=== PATIENT | male | born 1955 | race Caucasian/White ===

== ENCOUNTER 2023-04-27 17:38 | Outpatient (CLI) | payer BC, MEDICARE ==
[2023-04-27 18:27] LABS: Hematocrit 40.9 % (38.8-50.0); Hemoglobin 14.1 g/dL (13.5-17.5); Mean Corpuscular HGB CONC 34.5 g/dL (32.0-36.0); Mean Corpuscular Hemoglobin 31.7 pg (27.0-33.0); Mean Corpuscular Volume 91.9 fl (81.2-95.1); Mean Platelet Volume 9.4 fl (7.4-10.4); Platelet Count 283 10x3/uL (150-450); Red Blood Cell (RBC) Count 4.45 10x6/uL (4.32-5.72); White Blood Cell (WBC) Count 5.3 10x3/uL (3.5-10.5)
[2023-04-27 18:38] LABS: PTT 25.6 sec (22.0-33.0); Prothrombin Time 10.6 sec (9.5-12.1)
[2023-04-27 18:40] LABS: ALT (SGPT) 18 U/L (8-55); AST (SGOT) 18 U/L (5-34); Albumin 4.4 g/dL (3.4-4.8); Alkaline Phosphatase 81 U/L (40-110); Anion Gap 13 mmol/L (10-20); BUN (Urea Nitrogen) 13 mg/dL (8.4-25.7); Bilirubin, Total 0.5 mg/dL (0.2-1.2); Calc. Creatinine Clearance 0 mL/min (70-130); Carbon Dioxide 23 mmol/L (23-31); Chloride 107 mmol/L (98-107); Estimated GFR 80; Globulin 2.9 g/dL (2.4-3.5); Glucose 89 mg/dL (80-115); Protein, Total 7.3 g/dL (5.8-8.1); Sodium 139 mmol/L (136-145)
== END 2023-04-27 17:39 | disposition home or self-care (01) ==
LOC: LABBT 17:38
PROVIDERS: ATTEND Urology
DX: Z01.818 Encounter for other preprocedural examination (principal); N32.0 Bladder-neck obstruction
CPT/HCPCS: 80053; 85027; 85610; 85730; 87086; 93005; 93010

== ENCOUNTER 2023-05-10 06:27 | Inpatient (IN) | payer MEDICARE, BC ==
[2023-05-06 14:36] VITALS: BMI 27.1
[2023-05-10] MEDS ORDERED: LevoFLOXacin D5W 500 mg (100 mL) BAG ONE (09:20)
[2023-05-10] MEDS ORDERED: fentaNYL 50 mcg/mL 1 mL Vial ONE ×2 (10:46→11:29)
[2023-05-10] MEDS ORDERED: Lidocaine 2% PF 5 ML VIAL ONE (10:46)
[2023-05-10] MEDS ORDERED: PROPOFOL 20 ML ONE (10:46)
[2023-05-10] MEDS ORDERED: Famotidine/PF 20 mg/2ml Vial ONE (10:48)
[2023-05-10] MEDS ORDERED: SUGAMMADEX SODIUM 200 MG/2 ML VIAL ONE (10:48)
[2023-05-10] MEDS ORDERED: Ondansetron PF 4 MG/2 ML Vial ONE (10:52)
[2023-05-10] MEDS ORDERED: Dexamethasone 4 mg/ml Vial ONE (10:52)
[2023-05-10] MEDS ORDERED: Ondansetron HCl/PF 4 MG/2 ML Vial IVP PRN (12:38)
[2023-05-10] MEDS ORDERED: Promethazine HCl 25 MG/ML VIAL IM PRN (12:38)
[2023-05-10] MEDS: D5 1/2 NS w/20 mEq KCL 1,000 ML IV SCH (14:03)
[2023-05-10] MEDS ORDERED: Rocuronium Bromide 10 MG/ML (10ML VIAL) ONE (14:40)
[2023-05-10] MEDS: Docusate 100 MG CAP PO SCH (21:04)
[2023-05-10] MEDS: Hyoscyamine SL 0.125 MG TAB SL PRN (21:06)
[2023-05-10] MEDS: Acetaminophen 325 MG TAB PO PRN (21:06)
[2023-05-11] MEDS: LevoFLOXacin 500 mg/D5W 500 MG in Premix 1 BAG IVPB SCH (08:44)
[2023-05-11] MEDS: Multivitamin W/ Minerals 1 TAB PO SCH (08:44)
[2023-05-11 16:10] VITALS: BP 108/66; TEMP 97.9
== END 2023-05-11 18:30 | disposition home or self-care (01) | DRG 667 ==
LOC: SDC 06:27 → SURG B 14:00
PROVIDERS: ADMIT Urology; ATTEND Urology
PROC: 0VT08ZZ Resection of Prostate, Via Natural or Artificial Opening Endoscopic (ICD-10-PCS; principal; 2023-05-10)
PROC: 0TJB8ZZ Inspection of Bladder, Via Natural or Artificial Opening Endoscopic (ICD-10-PCS; 2023-05-10)
DX: N32.0 Bladder-neck obstruction (principal)
CPT/HCPCS: 88305; J1100; J1956; J2001; J2405; J2704; J3010; J3480; S0028